=== PATIENT | female | born 1950 | race Caucasian/White ===

== ENCOUNTER 2017-06-23 22:02 | Inpatient (IN) | payer OTHER ==
[~2017-06-23] VITALS: Ht 160 cm; Wt 72.3 kg
[~2017-06-23 22:02] MED LIST: ADVAIR 100/501 DISK IH; AMBIEN CR12.5 MG PO; AMBIEN10 MG PO; AMLODIPINE BESYL5 MG PO; ATORVASTATIN CA20 MG PO; BENICAR HCT 401 EACH PO; CLONIDINE HCL0.1 MG PO; COLACE100 MG PO; CYMBALTA30 MG PO; ESTRADIOL1 MG PO; FLEXERIL10 MG PO; GABAPENTIN300 MG PO; HYDROCODON-ACE1 EAC7 PO; HYZAAR 100-21 TABLET PO; LO-DOSE ASPIRIN81 M1 PO; LOSARTAN-HCTZ1 EAC1 PO; MACROBID100 MG PO; MAGNESIUM 300300 MG PO; NASONEX17 GM BOTH NARES; PATADAY2.5 ML BOTH EYES; POTASSIUM-9999 MG PO; PROGESTERONE200 MG PO; SYMBICORT60 INHALAT IH; TRAZODONE HCL100 MG PO; ULTRAM50 MG PO; XOPENEX HF200 INHALA IH; ZYRTEC10 M3 PO
[2017-06-24 09:23] VITALS: BP 119/80
[2017-06-24 19:57] VITALS: BP 130/81
[2017-06-24 20:20] VITALS: BP 130/81
[2017-06-25 00:05] VITALS: BP 118/71
[2017-06-25 03:44] VITALS: BP 96/58
[2017-06-25 07:52] VITALS: BP 95/54
[2017-06-25] MEDS ORDERED: CYCLOBENZAPRINE10 MG PO (08:15)
[2017-06-25] MEDS ORDERED: HYDROCODON-ACE1 EAC7 PO (08:18)
[2017-06-25 11:28] VITALS: BP 132/83
== END 2017-06-25 13:39 | disposition home or self-care (01) | DRG 460 ==
LOC: ENRESERV 22:02 → 2SOUTH 06-24 08:43 → ENRESERV 06-24 17:30 → 3EAST 06-24 19:53
PROC: 0SG007J Fusion of Lumbar Vertebral Joint with Autologous Tissue Substitute, Posterior Approach, Anterior Column, Open Approach (ICD-10-PCS; principal; 2017-06-24)
DX: M48.061 Spinal stenosis, lumbar region without neurogenic claudication (principal); M48.56XA Collapsed vertebra, not elsewhere classified, lumbar region, initial encounter for fracture; M51.16 Intervertebral disc disorders with radiculopathy, lumbar region; M43.16 Spondylolisthesis, lumbar region; K59.00 Constipation, unspecified; Z60.2 Problems related to living alone; J45.909 Unspecified asthma, uncomplicated; I10 Essential (primary) hypertension; E78.00 Pure hypercholesterolemia, unspecified; F41.9 Anxiety disorder, unspecified; E03.9 Hypothyroidism, unspecified; Z88.5 Allergy status to narcotic agent; Z98.1 Arthrodesis status; Z83.3 Family history of diabetes mellitus; Z82.49 Family history of ischemic heart disease and other diseases of the circulatory system; Z80.3 Family history of malignant neoplasm of breast
CPT/HCPCS: 72100; 76000; 86850; 86900; 86901; 94640; 99202; J0330; J0690; J1170; J1580; J1885; J2250; J2405; J3010; J3370